=== PATIENT | female | born 1955 | race Caucasian/White ===

== ENCOUNTER 2017-03-30 12:45 | Emergency (ER) | payer SELFPAY ==
[~2017-03-30] VITALS: Ht 157.5 cm; Wt 61.3 kg
[2017-03-30] MEDS ORDERED: FLEXERIL10 MG PO (14:33)
[2017-03-30] MEDS ORDERED: NAPROXEN500 MG PO (14:33)
[2017-03-30] MEDS ORDERED: LIDODERM 5% P1 PATCH TD (14:33)
[2017-03-30 14:41] VITALS: BP 142/77
== END 2017-03-30 14:48 | disposition home or self-care (01) ==
LOC: EME 12:45
DX: M54.5 Low back pain (principal); M79.605 Pain in left leg
CPT/HCPCS: 99281; 99284; J1885